=== PATIENT | female | born 1980 | race Caucasian/White ===

== ENCOUNTER 2018-10-06 14:39 | Emergency (ER) | payer MEDICAID ==
[~2018-10-06] VITALS: Ht 152.4 cm; Wt 71.0 kg
[2018-10-06 15:02] VITALS: Ht 152.4 cm; Wt 71.0 kg
[2018-10-06 18:11] LABS: microscopic required? YES; urine erythrocyte NEGATIVE (NEGATIVE)
[2018-10-06 18:15] LABS: BASOPHIL % 0.5 % (0-2); PLATELET COUNT 320 x10^3mcL (130-400)
[2018-10-06 18:19] LABS: RED CELL DISTRIBUTION WIDTH 15.6 % (11.5-14.5)
[2018-10-06 18:23] LABS: CALCIUM 9.3 mg/dL (8.5-10.1); CARBON DIOXIDE 25.5 mmol/L (21-32); CHLORIDE SERUM 104 mmol/L (98-107); CREATININE SERUM 0.8 mg/dL (0.6-1.0); GFR1 > 60 mL/min; GLUCOSE SERUM 85 mg/dL (74-106); POTASSIUM SERUM 3.9 mmol/L (3.5-5.1); SODIUM SERUM 140 mmol/L (136-145)
[2018-10-06 18:33] LABS: ALBUMIN 3.9 g/dL (3.4-5.0); ALKALINE PHOSPHATASE 80 U/L (46-116); ALT/SGPT 29 U/L (14-59); AST/SGOT 13 U/L (15-37); BILIRUBIN TOTAL 0.5 mg/dL (0.20-1.00)
[2018-10-06 18:35] LABS: TOTAL PROTEIN, SERUM 8.4 g/dL (6.4-8.2)
[2018-10-06 21:06] VITALS: BP 140/77
== END 2018-10-06 21:06 | disposition home or self-care (01) ==
LOC: ED 14:39
PROVIDERS: Emergency Medicine
DX: N39.0 Urinary tract infection, site not specified (principal); R51 Headache; Z98.890 Other specified postprocedural states
CPT/HCPCS: 36415; 87804; J1885; J2270; J2765